=== PATIENT | female | born 1990 ===

== ENCOUNTER → 2020-05-18 | Outpatient (CLI) | payer OTHER ==
[~2020-05-18] MED LIST: ACULAR 3 ML3 M1 OPH; ALBUTEROL0.09 MG/A2 INH; BIRTH CONTROL1 EAC1 PO; COLACE100 MG PO; IRON FERROUS S325 MG PO; MOTRIN800 MG PO; MULTIVITAMIN FO1 CAP PO; PERCOCET 325 MG1 TA6 PO; PREDNISONE20 MG PO; PRENATAL1 TA1 PO; TOBRAMYCIN 5 ML5 M1 OP; Ventolin 02.5 MG/3 M INH
== END | disposition home or self-care (01) ==
LOC: COVID19 10:17
PROVIDERS: ATTEND Social Worker Clinical
DX: Z20.822 Contact with and (suspected) exposure to COVID-19 (principal)